=== PATIENT | female | born 1965 | race Caucasian/White ===

== ENCOUNTER → 2017-03-13 | Outpatient (CLI) | payer OTHER ==
[~2017-03-13] MED LIST: ATEN50TA8 PO; DIVA500T59 PO; FURO-85 PO; POTA10CA28 PO; VENL150C PO
[2017-03-13 13:21] LABS: HEMATOCRIT 40.8 % (37-47); MEAN CELL VOLUME 87.4 fL (80-100); MEAN CORPUSCULAR HEMOGLOBIN 27.8 pg (25-34); MEAN CORPUSCULAR HGB CONC 31.9 g/dl (32-36); PLATELET COUNT 266 K/uL (130-400); RED BLOOD COUNT 4.67 M/uL (4.2-5.4); WHITE BLOOD COUNT 6.22 K/uL (4.8-10.8)
[2017-03-13 14:04] LABS: BLOOD UREA NITROGEN 10 mg/dl (7-18); BUN/CREATININE RATIO 12.8 (10-20); CALCIUM 8.6 mg/dl (8.5-10.1); CARBON DIOXIDE 30 mmol/L (21-32); CHLORIDE 106 mmol/L (98-107); CREATININE 0.79 mg/dl (0.60-1.20); GLUCOSE 82 mg/dl (70-99); POTASSIUM 4.2 mmol/L (3.5-5.1); SODIUM 142 mmol/L (136-145)
== END | disposition home or self-care (01) ==
LOC: C.LABMFLN 10:41
PROVIDERS: ATTEND Family Medicine
DX: I10 Essential (primary) hypertension (principal); F32.9 Major depressive disorder, single episode, unspecified

== ENCOUNTER → 2017-05-22 | Outpatient (CLI) | payer OTHER ==
--- NOTE | 2017-05-22 19:54 | DIAGNOSTIC IMAGING REPORT ---
WHOLE-BODY NUCLEAR BONE SCAN CLINICAL HISTORY: Lymphoma. COMPARISON STUDY: PET/CT dated 04/29/2016. TECHNIQUE: Three hours following the IV administration of 27.4 mCi of technetium 99m MDP, whole body nuclear bone scan was performed in the anterior and posterior projections. FINDINGS: There is intense abnormal activity identified in the humeral heads (right greater than left), the left humeral diaphysis, the femoral heads (left greater than right), and the left sternum. Scattered foci of low-level abnormal activity are identified within several ribs. There is greater than expected activity identified in the shoulders, elbows, wrists, knees, ankles, and feet. There is expected excreted activity within the renal collecting system and bladder. IMPRESSION: 1. There are numerous foci of abnormal tracer deposition identified as detailed above. This likely corresponds to bony involvement when correlated with the 04/29/2016 PET examination. 2. There is greater than expected activity seen throughout the joints. This may represent degenerative change but is atypical in appearance. Clinical correlation will be required. Electronically signed by: Denis Galvez M.D. 05/22/2017 7:52 PM Dictated Date/Time: 05/22/2017 7:48 PM
== END | disposition home or self-care (01) ==
LOC: C.NUCL 14:34
PROVIDERS: ATTEND Family Medicine
DX: C85.90 Non-Hodgkin lymphoma, unspecified, unspecified site (principal)

== ENCOUNTER → 2017-10-28 | Outpatient (CLI) | payer OTHER ==
[2017-10-28 18:27] LABS: BASO % 0.6 %; BASO ABS # 0.04 K/uL (0-0.2); COMPLETE YES; EOS % 1.8 %; HEMATOCRIT 33.3 % (37-47); IG% 0.9 %; LYMPH % 29.1 %; LYMPH ABS # 1.96 K/uL (1.2-3.4); MEAN CELL VOLUME 82.8 fL (80-100); MEAN CORPUSCULAR HEMOGLOBIN 27.6 pg (25-34); MEAN CORPUSCULAR HGB CONC 33.3 g/dl (32-36); MEAN PLATELET VOLUME 9.5 fL (7.4-10.4); MONO % 9.8 %; NEUT % 57.8 %; PLATELET COUNT 422 K/uL (130-400); RED BLOOD COUNT 4.02 M/uL (4.2-5.4); WHITE BLOOD COUNT 6.73 K/uL (4.8-10.8)
[2017-10-28 18:42] LABS: C-REACTIVE PROTEIN 6.06 mg/dl (0-0.29)
== END | disposition home or self-care (01) ==
LOC: C.LABMFLN 14:57
PROVIDERS: ATTEND Family Medicine
DX: C85.90 Non-Hodgkin lymphoma, unspecified, unspecified site (principal)

== ENCOUNTER → 2017-11-28 | Outpatient (CLI) | payer OTHER ==
[2017-12-01 15:45] LABS: ANA SCREEN TC 249X NEGATIVE (NEGATIVE)
== END | disposition home or self-care (01) ==
LOC: C.LABMFLN 09:47
PROVIDERS: ATTEND Family Medicine
DX: M19.90 Unspecified osteoarthritis, unspecified site (principal)